=== PATIENT | male | born 1985 | race Caucasian/White ===

== ENCOUNTER 2020-05-12 09:24 | Emergency (ER) | payer OTHER ==
[~2020-05-12] VITALS: Ht 182.9 cm; Wt 114.7 kg
[2020-05-12 09:25] VITALS: BP 138/78
--- NOTE | 2020-05-12 09:56 | REP ---
INDICATION: injury 5th toe. COMPARISON: None. TECHNIQUE: Four views. FINDINGS: Four views of the left 5th toe demonstrate mild lateral subluxation of and widening of the PIP joint. There is developmental fusion of the DIP joint of the 5th digit.. No fracture or subluxation is seen. No opaque foreign body noted. IMPRESSION: There is diastasis and mild lateral subluxation of the PIP joint of the 5th digit. No fracture is visible.. <Electronically signed by Garry Alcala > 05/12/20 [id number]
== END 2020-05-12 10:24 | disposition home or self-care (01) ==
LOC: M ED 09:24
DX: S93.102A Unspecified subluxation of left toe(s), initial encounter (principal); W22.09XA Striking against other stationary object, initial encounter; Y92.89 Other specified places as the place of occurrence of the external cause; Y93.89 Activity, other specified; Y99.8 Other external cause status; Z88.1 Allergy status to other antibiotic agents

== ENCOUNTER 2020-10-14 04:18 | Emergency (ER) | payer OTHER ==
[~2020-10-14] VITALS: Ht 182.9 cm; Wt 119.4 kg
[2020-10-14 05:00] LABS: BASO % 0.6 % (0.0-1.0); EOS # 0.1 10^3/uL (0.0-0.5); HEMATOCRIT 42.8 % (42.0-52.0); HEMOGLOBIN 14.6 g/dl (13.5-17.5); LYMPH % 38.5 % (24.0-44.0); MEAN CORPUSCULAR HEMOGLOBIN 33.6 pg (27.0-33.0); MEAN CORPUSCULAR HGB CONC 34.1 g/dl (32.0-36.5); MEAN CORPUSCULAR VOLUME 98.6 fl (80.0-96.0); MONO # 0.5 10^3/uL (0.0-0.8); NEUTROPHILS # 2.5 10^3/uL (1.5-8.5); NEUTROPHILS % 48.7 % (36.0-66.0); PLATELET COUNT, AUTOMATED 189 10^3/uL (150-450); RED BLOOD COUNT 4.34 10^6/uL (4.30-6.10); WHITE BLOOD COUNT 5.1 10^3/uL (4.0-10.0)
[2020-10-14 05:15] LABS: APPEARANCE, URINE CLOUDY (CLEAR); BACTERIA, URINE AUTO NEGATIVE (NEGATIVE); BILIRUBIN, URINE AUTO NEGATIVE (NEGATIVE); BLOOD, URINE BLOOD 3+ (NEGATIVE); COLOR, URINE YELLOW (YELLOW); GLUCOSE, URINE (UA) AUTO NEGATIVE (NEGATIVE); KETONE, URINE AUTO 1+ mg/dL (NEGATIVE); LEUKOCYTE ESTERASE, URINE AUTO NEGATIVE (NEGATIVE); MUCUS, URINE SMALL (NEGATIVE); NITRITE, URINE AUTO NEGATIVE (NEGATIVE); PROTEIN, URINE AUTO 1+ mg/dL (NEGATIVE); RBC, URINE AUTO TNTC /HPF (0-3); SQUAMOUS EPITHELIAL CELL UR AU 0 /HPF (0-6); UROBILINOGEN, URINE AUTO 0.2 mg/dL (0.0-2.0); WBC, URINE AUTO 0 /HPF (0-3)
[2020-10-14 05:34] LABS: ALBUMIN 4.1 GM/DL (3.2-5.2); ALT/SGPT 66 U/L (12-78); BILIRUBIN,DIRECT 0.2 MG/DL (0.0-0.2); BILIRUBIN,TOTAL 0.6 MG/DL (0.2-1.0); BLOOD UREA NITROGEN 20 MG/DL (7-18); CARBON DIOXIDE LEVEL 25 MEQ/L (21-32); CHLORIDE LEVEL 104 MEQ/L (98-107); CREATININE FOR GFR 1.02 MG/DL (0.70-1.30); GLOMERULAR FILTRATION RATE > 60.0 (>60); GLUCOSE, FASTING 142 MG/DL (70-100); LIPASE 111 U/L (73-393); POTASSIUM SERUM 4.1 MEQ/L (3.5-5.1); SODIUM LEVEL 137 MEQ/L (136-145); TOTAL PROTEIN 7.4 GM/DL (6.4-8.2)
[2020-10-14] MEDS ORDERED: NS 1,000 ML IV ONE (06:40)
[2020-10-14] MEDS ORDERED: ONDANSETRON 4MG/2ML VIAL IV ONE (06:40)
[2020-10-14] MEDS ORDERED: KETOROLAC 30 MG/ML 1ML VIAL IV ONE (06:40)
--- NOTE | 2020-10-14 07:35 | REPVR ---
PROCEDURE INFORMATION: Exam: CT Abdomen And Pelvis Without Contrast Exam date and time: 10/14/2020 6:39 AM Age: 35 years old Clinical indication: Abdominal pain; Flank; Left; Additional info: L abd pain, hematuria, R/O stone TECHNIQUE: Imaging protocol: Computed tomography of the abdomen and pelvis without contrast. Radiation optimization: All CT scans at this facility use at least one of these dose optimization techniques: automated exposure control; mA and/or kV adjustment per patient size (includes targeted exams where dose is matched to clinical indication); or iterative reconstruction. COMPARISON: No relevant prior studies available. FINDINGS: Mediastinal space: There is a small sliding hiatal hernia. Liver: Normal. No mass. Gallbladder and bile ducts: Normal. No calcified stones. No ductal dilation. Pancreas: Normal. No ductal dilation. Spleen: Normal. No splenomegaly. Adrenal glands: Normal. No mass. Kidneys and ureters: There is 3 mm left UVJ stone with mild proximal hydronephrosis. Left renal stone measuring 5 mm is seen. There is no right renal or ureteral stones nor hydronephrosis. Stomach and bowel: Unremarkable. No obstruction. No mucosal thickening. Appendix: No evidence of appendicitis. Intraperitoneal space: Unremarkable. No free air. No significant fluid collection. Vasculature: Nonspecific slightly asymmetrically more prominent left iliofemoral vein as compared to the right. Lymph nodes: There is shotty left retroperitoneal lymph nodes possibly reactive. Urinary bladder: Unremarkable as visualized. Reproductive: Unremarkable as visualized. Bones/joints: Unremarkable. No acute fracture. Soft tissues: There is 2 cm umbilical fat containing hernia. IMPRESSION: 1. 3 mm left UVJ obstructing stone with mild proximal hydronephrosis in addition to 5 mm with left renal stone. 2. Small sliding hiatal hernia. 3. Small umbilical fat containing hernia. 4. Nonspecific mild asymmetrically more prominent left iliofemoral vein as compared to the right. This is possibly normal variant however underlying DVT cannot be completely excluded. Ultrasound duplex is suggested for further evaluation. Electronically signed by: Marky Tom On 10/14/2020 07:35:41 AM
--- NOTE | 2020-10-14 08:27 | REP ---
INDICATION: r/o DVT LLE COMPARISON: None. TECHNIQUE: Farr scale and color Doppler evaluation using linear high frequency transducer. FINDINGS: Ultrasound examination of the left lower extremity deep venous structures from the common femoral vein to the popliteal vein demonstrates normal compressibility flow and wave patterns in response to respiration and augmentation. There is no evidence for deep venous thrombosis. IMPRESSION: No evidence for deep venous thrombosis. <Electronically signed by Ko Hanson > 10/14/20 0816
[2020-10-14] MEDS ORDERED: FLOM0.4C39 PO (09:26)
[2020-10-14] MEDS ORDERED: KETO10TAB PO (09:26)
[2020-10-14 10:38] VITALS: BP 112/53
== END 2020-10-14 10:41 | disposition home or self-care (01) ==
LOC: M ED 04:18
DX: N20.2 Calculus of kidney with calculus of ureter (principal); N23 Unspecified renal colic; K42.9 Umbilical hernia without obstruction or gangrene; K44.9 Diaphragmatic hernia without obstruction or gangrene; Z88.1 Allergy status to other antibiotic agents; F17.220 Nicotine dependence, chewing tobacco, uncomplicated
CPT/HCPCS: 74176; 80053; 81001; 82248; 83605; 83690; 85025; 93971; 96361; 96374; 96375; 99284; J1885; J2405